=== PATIENT | male | born 1940 | race Caucasian/White ===

== ENCOUNTER 2019-01-07 12:26 | Day surgery (SDC) | payer MEDICARE ==
[~2019-01-07] VITALS: Ht 193 cm; Wt 103.6 kg
[2019-01-07] VITALS (9 sets, daily range): BP systolic 111–151; BP diastolic 64–97
[2019-01-07] MEDS ORDERED: normal saline 1000ml 1,000 ML IV SCH (12:55)
[2019-01-07] MEDS ORDERED: diphenhydrAMINE 25mg capsule PO PRN (12:55)
[2019-01-07] MEDS ORDERED: iohexol 350MG/ML 100ml bottle IV ONE ×2 (13:29→14:37)
[2019-01-07] MEDS ORDERED: midazolam 2 mg/2 ml injection ONE ×2 (13:29→14:14)
[2019-01-07] MEDS ORDERED: iohexol 350 MG/ML 50ML vial IV ONE (13:29)
[2019-01-07] MEDS ORDERED: LIDOcaine 1% (10mg/ml)w/preservative injection 20ml MDV ONE (13:29)
[2019-01-07] MEDS ORDERED: fentaNYL/PF 50MCG/1 ML 2ML syringe ONE (13:29)
[2019-01-07] MEDS ORDERED: FOLI1TAB16 PO (13:31)
[2019-01-07] MEDS ORDERED: METH2.5T PO (13:31)
[2019-01-07] MEDS ORDERED: ASCO500C15 PO (13:31)
[2019-01-07] MEDS ORDERED: FLO0.4C PO (13:31)
[2019-01-07] MEDS ORDERED: GLUC-221 PO (13:31)
[2019-01-07] MEDS ORDERED: CALC-854 PO (13:31)
[2019-01-07] MEDS ORDERED: LUTE20CA PO (13:31)
[2019-01-07] MEDS ORDERED: TURM538C PO (13:31)
[2019-01-07] MEDS ORDERED: UBID100C45 PO (13:31)
[2019-01-07] MEDS ORDERED: ACET-2119 PO (13:31)
[2019-01-07] MEDS ORDERED: FLEC100T2 PO (13:31)
[2019-01-07] MEDS ORDERED: ALEN70TA60 PO (13:31)
[2019-01-07] MEDS ORDERED: SAW450CA7 PO (13:31)
[2019-01-07] MEDS ORDERED: MULT-933 PO (13:31)
[2019-01-07 13:49] LABS: BASOPHILS % (AUTO) 0.8 % (0-1); EOSINOPHILS # (AUTO) 0.2 X10'3 (0-0.9); EOSINOPHILS % (AUTO) 3.5 % (0-6); HEMATOCRIT 47.8 % (42.0-52.0); HEMOGLOBIN 16.1 g/dl (14.0-17.9); LYMPHOCYTES # (AUTO) 1.4 X10'3 (1.1-4.8); LYMPHOCYTES % (AUTO) 24.2 % (21-51); MEAN CORPUSCULAR HEMOGLOBIN 31.3 PG (27.0-31.0); MEAN CORPUSCULAR HGB CONC 33.7 g/dL (33.0-36.5); MEAN CORPUSCULAR VOLUME 92.8 FL (78-98); MONOCYTES # (AUTO) 0.5 X10'3 (0-0.9); NEUTROPHILS # (AUTO) 3.6 X10'3 (1.8-7.7); NEUTROPHILS % (AUTO) 62.5 % (42-75); PLATELET COUNT 201 X10'3 (140-440); RED BLOOD COUNT 5.16 X10'6 (4.70-6.10); RED CELL DISTRIBUTION WIDTH 14.7 % (11.5-14.5); WHITE BLOOD COUNT 5.7 X10'3 (4.5-11.0)
[2019-01-07 13:55] LABS: ALBUMIN 4.2 G/DL (3.4-5.0); ANION GAP 10 (8-16); BLOOD UREA NITROGEN 17 MG/DL (7-18); BUN/CREATININE RATIO 16.7 (5.4-32.0); CALCIUM 9.3 MG/DL (8.5-10.1); CHLORIDE 106 MMOL/L (99-107); CREATININE 1.02 MG/DL (0.60-1.10); GLUCOSE 90 MG/DL (70-104); POTASSIUM 4.1 MMOL/L (3.5-5.1); SODIUM 145 MMOL/L (135-145); TOTAL CARBON DIOXIDE 29.1 MMOL/L (24-32); eGFR 71 ML/MIN
[2019-01-07] MEDS ORDERED: heparin 1,000unit/ml 10ml vial 10 ML ONE (14:28)
[2019-01-07] MEDS ORDERED: clopidogrel 300mg tablet ONE (14:38)
== END 2019-01-07 18:05 | disposition home or self-care (01) ==
LOC: SSTAY O 12:26
PROVIDERS: ATTEND Internal Medicine Cardiovascular Disease
DX: I25.10 Atherosclerotic heart disease of native coronary artery without angina pectoris (principal); I48.3 Typical atrial flutter; E78.5 Hyperlipidemia, unspecified; I49.5 Sick sinus syndrome; I10 Essential (primary) hypertension; Z98.890 Other specified postprocedural states; Z90.49 Acquired absence of other specified parts of digestive tract; Z82.49 Family history of ischemic heart disease and other diseases of the circulatory system; Z88.8 Allergy status to other drugs, medicaments and biological substances
CPT/HCPCS: 36415; 80048; 83735; 85025; 85610; 93005; 93458; 99152; 99153; A6257; C1725; C1760; C1769; C1874; C1894; C9600; J1644; J2001; J2250; J3010; J7030; Q0163; Q9967; A4620